=== PATIENT | female | born 2000 | race African-American/Black ===

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

== ENCOUNTER 2020-06-10 05:45 | Inpatient (IN) | payer MEDICAID, SELFPAY ==
[2020-06-10] VITALS (36 sets, daily range): BP systolic 97–124; BP diastolic 53–73; PULSE 56–111; RESP 16; TEMP 36.6–36.9; O2SAT 97–100; BMI 30.4
[2020-06-10 06:17] LABS: Absolute Lymphocyte Count 1.92 X10^3/uL (0.83-4.51); Absolute Neutrophil Count 5.7 X10^3/uL (2.0-7.7); Basophil# 0.02 X10^3/uL; Basophil% 0.2 % (0-1); Eosinophils% 1.1 % (0-5); Hematocrit 34.3 % (37-47); Hemoglobin 10.5 g/dL (12.0-15.0); Lymphocyte # 1.92 X10^3/ul (4.0); Lymphocyte % 21.9 % (19-41); Mean Corp Hgb Conc 30.6 g/dL (32-36); Mean Corpuscular Hgb 24.2 pg (27.0-32.0); Mean Corpuscular Volume 79.2 fL (81-99); Mean Platelet Vol. 11.2 fl (6.2-12.0); Monocyte# 0.93 X10^3/uL; Monocyte% 10.6 % (0-10); NRBC Flagged by Analyzer 0 % (0-5); Neutrophil # 5.73 X10^3/uL (2.7-7.7); Neutrophil % 65.6 % (47-70); Platelet Count 210 K/mm3 (150-450); RBC Distribution Width CV 15.2 % (11.6-14.6); RBC Distribution Width SD 43.7 fl (35.1-43.9); Red Blood Count 4.33 M/mm3 (4.2-5.4); White Blood Count 8.8 K/mm3 (4.4-11.0)
[2020-06-10] MEDS: Lactated Ringers 500 ML 999 ML IV (06:17)
[2020-06-10] MEDS: Lactated Ringers 1,000 ML 50 ML IV (06:50)
[2020-06-10] MEDS: fentaNYL-bupivacaine (epidural) 100 ML BAG EPIDURAL (07:29)
[2020-06-10 07:45] LABS: Amphetamine Urine VISTA NEGATIVE (<1000 ng/mL); Barbiturate Urine VISTA NEGATIVE (< 200 ng/mL); Benzodiazepine Urine VISTA NEGATIVE (< 200 ng/mL); Cocaine Urine VISTA NEGATIVE (< 300 ng/mL); Ecstacy Urine VISTA NEGATIVE (< 500 ng/mL); Methadone Urine VISTA NEGATIVE (< 300 ng/mL); PCP Urine VISTA NEGATIVE (< 25 ng/mL); THC Urine VISTA POSITIVE (< 50 ng/mL); Vista UDS pH Range 6
--- NOTE | 2020-06-10 08:36 | PCM.HP.OB ---
History Date of Admission: 06/10/19 Final SOPHIE: 06/17/20 Final SOPHIE Source: US <20 weeks Gestational age: 39 Weeks and 0 Days History of this : This is a 19 year-old, 2 para 1 at 39 weeks gestation with a EDC of 06/17/2020 presents with spontaneous labor. Her has been complicated to date by scanty care. SOPHIE was confirmed by 10-week ultrasound. She has a history of one previous vaginal delivery, her daughter was born 06/11/2019 and had trisomy 21. Allergies No Known Allergies Allergy (Verified 11/29/19 13:41) Home Medications: Home Medications Pnv No.95/Ferrous Fum/Folic AC [ Caplet] 1 tab PO DAILY 06/10/20 Smoking Status: Current some day smoker Substance Use Type: Marijuana Number of Fetus(es): 1 History Past Pregnancies: Past Pregnancies Delivery Date Name GA/ Weeks Outcome Route Wt Infant Sex Labor Length Anesthesia Delivery Location Provider FOB Expected Infant Delivery Method: Spontaneous Vaginal Review of Systems Constitutional: Denies: Chills, Fever Eyes: Denies: Blurred vision Cardiovascular: Denies: Chest Pain Respiratory: Denies: Cough Neurological: Reports: Balance problems. Denies: Change in Speech, Slurred speech Physical Exam Vitals: Vital Signs Temp Pulse BP Pulse Ox 97.9 F 72 109/66 100 06/10/20 06:30 06/10/20 08:33 06/10/20 08:33 06/10/20 07:26 General: Alert, Cooperative, No apparent distress Cardiovascular: Regular rate Lungs: Normal air movement Abdomen: Soft, Non-Distended, Gravid, Appropriate for Gestational Age Neurological: Neuro grossly intact Assessment/Plan This is a 19 year-old, avid 2 para 1 at 39 weeks gestation in labor. Estimated weight is less than 4500 g clinically and pelvis is clinically adequate to expect vaginal delivery. May have epidural as needed for pain control. Group B strep is unknown, patient was not treated with penicillin prophylaxis as she had no risk factors. Rapid group B strep is pending. Will notify pediatricians of results. Patient will need social service consult due to scant care.
[2020-06-10 08:44] LABS: Group B Strep DNA By PCR POSITIVE (Negative); Probe Check PASS
[2020-06-10] MEDS: Oxytocin 30 units/NS 500 ml 30 UNITS/500 ML IV.SOLN 334 UNITS IV (08:57)
--- NOTE | 2020-06-10 09:03 | PCM.OPRPT ---
Vaginal Delivery Maternal Presentation: Active Labor Amniotic Membrane Rupture Type: Artificial Amniotic Fluid Description: Clear Final SOPHIE: 06/17/20 Final SOPHIE Source: US <20 weeks Gestational age: 39 Weeks and 0 Days Date of Procedure: 06/10/20 Pre-Operative Diagnosis: labor Post-Operative Diagnosis: same Surgery/ Procedure Performed: Spontaneous Vaginal Delivery Type of Anesthesia: Epidural Description of Procedure: A vigorous [female] was delivered [SCARLETT] over intact perineum. The remainder the was delivered with maternal pushing and gentle traction only in less than 15 seconds. The Pitocin infusion was initiated for active management of the third stage. The cord was clamped and cut [after 1 minute]. The was attended to by the waiting nursing staff. The placenta was delivered spontaneously and intact. The cervix and vagina were intact. Sponge and needle counts were correct. A vaginal sweep was completed by me. Presentation: SCARLETT Placental Delivery Description: Spontaneous Placenta Disposition: [facility] Cord Vessel Description: 3 Vessels Cord Entanglement: None Drain: - - none Estimated Blood Loss: 200 A gender: Female - Maria Alejandra (1 minute): 9 (5 minute): 10 Episiotomy Description: None Laceration: None Medications given after delivery: IV Pitocin Complications: None
[2020-06-10] MEDS: Ibuprofen 600 MG Tablet PO ×2 (10:06→16:43)
[2020-06-10] MEDS: Acetaminophen 500 MG Tablet 1000 MG PO (21:39)
[2020-06-11] VITALS (11 sets, daily range): BP systolic 98–137; BP diastolic 48–84; PULSE 60–91; RESP 16; TEMP 36.1–36.9; O2SAT 98–100
[2020-06-11] MEDS: Ibuprofen 600 MG Tablet PO ×2 (02:34→15:53)
--- NOTE | 2020-06-11 08:56 | PCM.PN.OB ---
Subjective: Doing well per patient and nursing staff. Ambulating and taking PO without difficulty. Voiding and passing flatus. Bottlefeeding. Pain controlled. Lochia normal. Offers no complaints. Requesting discharge home. - Physical Exam Vitals/I&O's: Vital Signs Temp Pulse Resp BP Pulse Ox 98.0 F 65 16 113/61 99 06/11/20 08:45 06/11/20 08:45 06/11/20 08:45 06/11/20 08:45 06/11/20 08:45 Oxygen Delivery Method Room Air Weight: 206 lb 2.115 oz Body Mass Index (BMI) 30.4 Intake and Output for Last 24 Hours 06/09/20 06/10/20 06/11/20 23:59 23:59 23:59 Intake Total 1420.83 / 1420.83 Output Total 400 / 400 Balance 1020.83 / 1020.83 General: Alert, Oriented x3, Cooperative HEENT: Atraumatic, Normocephalic Neck: Trachea Midline Lungs: Clear to auscultation, Normal air movement, No rhonchi, No wheeze Cardiovascular: Regular rate, Regular Rhythm, No murmurs Abdomen: Bowel Sounds Present, Soft - fundus firm 2 below U Extremities: No edema Neurological: Deep Tendon Reflexes 2+/4 and Symmetrical Psych/Mental Status: Normal Affect, Appropriate Current Medications Acetaminophen (Tylenol) 1,000 mg PO Q8H PRN PRN PRN Reason: Pain Score 1-3/10 Last Admin: 06/10/20 21:39 Dose: 1,000 mg Documented by: Bisacodyl (Dulcolax) 10 mg RECTAL UD PRN PRN Reason: If no BM Dibucaine (Dibucaine) 1 applic TOPICAL TID PRN PRN; Protocol PRN Reason: Discomfort Hydrocortisone (Hytone) 1 applic TOPICAL TID PRN PRN; Protocol PRN Reason: Discomfort Ibuprofen (Motrin) 600 mg PO Q6H PRN PRN PRN Reason: Pain Score 1-3/10 Last Admin: 06/11/20 02:34 Dose: 600 mg Documented by: Methylergonovine Maleate (Methergine) 0.2 mg IM X1 PRN PRN Reason: Excess bleeding/uterine atony Ondansetron HCl (Zofran) 4 mg IV Q4H PRN PRN PRN Reason: Nausea Prochlorperazine Edisylate (Compazine Iv) 10 mg IV Q6H PRN PRN PRN Reason: NAUSEA/VOMITING Senna/Docusate Sodium (Senokot-S, Kym-Colace) 1 - 2 tablet PO DAILY PRN PRN PRN Reason: Constipation Simethicone (Mylicon) 80 mg PO PCHS PRN PRN Reason: Indigestion/Stomach pain Sodium Chloride () 5 - 15 ml IV UD PRN PRN Reason: SALINE FLUSH Medical Necessity - Tobacco Use Smoking Status: Current some day smoker Assessment/Plan A:PPD #1 P: 1) Routine instructions 2) technical services coordinator consultation. 3) Discharge home pending social worker school and junior legal secretary. 4) Follow up in 2 weeks and 6 weeks.
--- NOTE | 2020-06-11 08:58 | DCINST_ITS ---
Discharge Diet: No Restrictions Discharge Activity: Return to Normal Activity, May not drive while taking narcotic pain medications., May Shower May resume sexual activity in: 4-6 weeks Additional Activity Instructions:: Nothing in the vagina for 4-6 weeks. You may return to work/school in 6 weeks. Call your doctor if your incision/area has: Continuous Slow Oozing, Sudden Increased Bleeding, Increased Pain/ Swelling, Increased Redness, Foul Smelling Discharge Additional Instructions: If you experience any of the following, contact your healthcare provider. * Bleeding that soaks a pad every hour for 2 hours * Fever 100.4 or higher * Unrelieved incision or abdominal pain * Swelling, redness, discharge or bleeding from your incision or episiotomy site * Your incision begins to separate * Problems urinating (including inability to urinate or burning while urinating). * Visual changes * Severe headache * Flu-like symptoms * Pain or redness in one of both of your breasts * Pain, warmth, tenderness or swelling in your legs, especially the calf area * Frequent nausea and vomiting * Symptoms of depression or anxiety If you experience any of the following, call 911 or go to the nearest Emergency Room. * Chest pain * Problems breathing * Seizure activity * Partial or complete paralysis of a body part, slurred speech, weakness or drooping of the face, or a sudden inability to walk or hold your balance Allergies/Adverse Reactions: Allergies No Known Allergies Allergy (Verified 11/29/19 13:41) Medications to take at Discharge Pnv No.95/Ferrous Fum/Folic AC [ Caplet] 1 tab PO DAILY 06/10/20 Please Follow Up With: Jennyfer Lee MD When: Call to make an appointment with your doctor in 6 weeks. If you had elevated Blood Pressure or 4th degree laceration you will need to be seen in 2 weeks. Primary Care Physician: Noelle Verduzco NP, SOUND EFFECTS PERSON-C [Primary Care Provider] - Test Results: Test results from this visit will be discussed in further detail at your follow- up appointment, if applicable.
--- NOTE | 2020-06-11 08:58 | PCM.DCVAG ---
Discharge Diet: No Restrictions Discharge Activity: Return to Normal Activity, May not drive while taking narcotic pain medications., May Shower May resume sexual activity in: 4-6 weeks Additional Activity Instructions:: Nothing in the vagina for 4-6 weeks. You may return to work/school in 6 weeks. Call your doctor if your incision/area has: Continuous Slow Oozing, Sudden Increased Bleeding, Increased Pain/ Swelling, Increased Redness, Foul Smelling Discharge Additional Instructions: If you experience any of the following, contact your healthcare provider. Bleeding that soaks a pad every hour for 2 hours Fever 100.4 or higher Unrelieved incision or abdominal pain Swelling, redness, discharge or bleeding from your incision or episiotomy site Your incision begins to separate Problems urinating (including inability to urinate or burning while urinating). Visual changes Severe headache Flu-like symptoms Pain or redness in one of both of your breasts Pain, warmth, tenderness or swelling in your legs, especially the calf area Frequent nausea and vomiting Symptoms of depression or anxiety If you experience any of the following, call 911 or go to the nearest Emergency Room. Chest pain Problems breathing Seizure activity Partial or complete paralysis of a body part, slurred speech, weakness or drooping of the face, or a sudden inability to walk or hold your balance Allergies/Adverse Reactions: Allergies No Known Allergies Allergy (Verified 11/29/19 13:41) Medications to take at Discharge Pnv No.95/Ferrous Fum/Folic AC [ Caplet] 1 tab PO DAILY 06/10/20 Please Follow Up With: Jennyfer Lee MD When: Call to make an appointment with your doctor in 6 weeks. If you had elevated Blood Pressure or 4th degree laceration you will need to be seen in 2 weeks. Primary Care Physician: Noelle Verduzco NP, OBSERVER HELPER-C [Primary Care Provider] - Test Results: Test results from this visit will be discussed in further detail at your follow-up appointment, if applicable.
--- NOTE | 2020-06-11 13:08 | CASEMGMT ---
Social Work Labor and Delivery Verbal consult received by nursing staff for maternal history of marijuana in and teen mother (19 years old). Chart has been reviewed and noted that patient/mother of baby (MOB) first child with diagnosis of Trisomy 21. Presented to MOB's room twice today. First presentation, the reported father of baby in room and stated that MOB is showering. This radio script writer noted odor of what smelled like marijuana in the room. FOB asked for bottles. Updated nursing to request for bottles and mentioned the smell in the room. RN reports this smell has been present on and off today. Second presentation to the room found that MOB had signed off of the unit. Will try again later today as time allows for assessment and consult. -JOSEPH Espinoza, ARABIC PROFESSOR
--- NOTE | 2020-06-11 15:55 | CASEMGMT ---
Social Work Assessment Labor and Delivery Unit Patient Address: [address] [place], [place] [address]Mar[place] [address] Phone number: [phone] Date of Referral: 06/10/2020 Referred By: Nursing staff Date of Intervention: 06/11/2020 Time of Intervention: 1555 Reason for Referral: Maternal history of marijuana use, positive upon admission. History obtained from: Medical records and mother of baby (MOB) Redd Motley; father of baby (FOB) Adrian Schaffer also present for part of assessment. Household composition: MOB reports to currently lives with FOB's cousin Александр Alvarez, and Александр's girlfriend. MOB reports home situation is safe and adequate. Also in the home are MOB and FOB's older daughter. Intend to take baby to this home. Patient's parent/guardian status: MARU is a 19-year-old single -Finnish female involved with FOB who is a 18-year-old -Finnish male for the last 4 years. MOB denies any type of abuse, control, or intimidation in this relationship. MOB and FOB now have 2 children together: Radha Schaffer(born 06/11/2019) and baby Maria Alejandra Schaffer (born 06/10/2020). Medical History: MARU is 2 para 1, now 2 after delivery of Maria Alejandra. care during this was limited with visits noted at 10, 12, 20, and 26 weeks. MOB reports moving as reasons for limited care. Note that MOB oldest daughter does have Down syndrome. Maria Alejandra was born weighing 6 pounds 8 ounces Apgars are reported to be 9 and 10 at 1 and 5 minutes respectively. Educational Status: MARU reports she graduated from high school, and is able to read, write, and understand what is read. 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 JOEL does not work because he does not have a photo ID. Currently the family is financially assisted by FOSheila's cousin, with whom they live. Infant Supplies: MOB reports to have needed infant supplies including a pack and play, a crib, 1 car seat currently, clothing, diapers, and wipes. MOB reports to be feeding baby via combination of formula and breast-feeding. MARU plans to use WIC to assist with purchasing formula. Childcare/Caregiver(s): MARU is the primary caregiver of the children, with help from father of baby. Transportation: MOB reports to rely on JOEL's cousin, cabs and bus passes. Programs/Agencies Involved: MOB reports to have medical through job and family services, and plans to reapply for the food card. Community action program for transportation passes, and has made inquiries with a car seat program to get a second car seat for the family. MARU agrees to an early Headstart referral through [employer] as well. Reports a history of help me grow involvement for her oldest daughter, but nothing current. MOB reports plan to reapply for financial support through the Bridges program (which is a program for children who have been in foster care and aged out of the system). [facility] Children Services/Legal Issues: MOB denies any type of legal charges for herself or the father of baby. MOB reports the father of baby used to be on probation for issues related to marijuana, but denies any other type of legal history. MOB reports children services of [facility] did become involved when MOB was a minor, and about 3 to 4 months prior to MOB turning 18 the MOB and her younger siblings were placed into foster care. MARU reports that her younger siblings still reside in foster care through children services. MOB reports upon aging out a foster care she is utilize the bridges program, which has assisted MOB with transitioning to independent living. Behavioral Health Issues: Mental Health History: MARU denies any form of mental health issues for herself, and denies any history of suicidal or homicidal ideation/planning/intent/attempts. MARU reports she is known a couple of people this year have by suicide, and knows that this leaves a lasting effect on others, which is not something MOB wants to do. MARU denies any depression, and reports she is typically a very healthy person. [place] depression screen completed with MOB this date and score is a 3, which is lower than the threshold for depression. Substance Use History: MARU endorses marijuana use during , and reports she did not use it all of the time. MOB reports use was related to back issues. Last use was reported to be about 1 week ago. MOB denies any other illicit drug use history including heroin, meth, cocaine, or other opiates or narcotic type drugs. Denies alcohol use. Did use tobacco during . Family History: Both of MOB parents have a history of substance use disorder. Drug Screens: Maternal drug screens positive for marijuana on 11/23/2019 and 06/10/2020. 's urine drug screen negative and meconium drug screen is pending. Family/Social Stressors:: MOB reports she JOEL decided to move out of [facility] during this , as they thought it might be better. JOEL reportedly has family in the [facility], so they moved to [place] for about a week and then to [place] for short time. MOB reports she realized they moved too quickly before everything was really organized, and decided to move back to [place], and since have been living with JOEL's cousin. 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 As a results the parents were not able to financially support themselves. MOB reports she is been having contact with her mother, but doing this more so to be a support to her mother who is reportedly working on sobriety. MOB reports that her mother is coming up at the two-year abhinav with a minor children being in the custody of children services. MOB reports that if her mother does not put together and get the children back, that MOB will be taken around to be a support to her mother. Support Systems: MOB reports her sister is a good support person to MOB. For practical help and will be reports the JOEL suppressing helps out a lot. MOB reports there is adequate support between family and friends. Depression/Shaken Baby/Safe Sleeping discussed shaken baby prevention and safe sleeping. MOB reports she knows somebody who is baby just due to sleep-related issues, and MOB understands the importance of safe sleeping. Educated to depression and anxiety, risk factors, and importance of seeking help if symptoms arise. ASSESSMENT: Met with MOB and FOB in room and then met with MOB alone. MOB cooperative, pleasant, good eye contact, nondefensive, bright affect. MOB reports to have needed infant supplies to care for the infant at home, and to have adequate support and taking the baby home. MOB reports intent to abstain from marijuana moving forward. Addressed with MOB whether she is involved with any supportive services for her her older daughter who has Down syndrome. MARU reports history of help me grow, but not interested in referral back to this program. MARU reports her oldest daughter is reportedly hitting all of the milestones on time and there has been no concerns for need of additional intervention at this point. MARU does agree to an early Headstart referral through community action, for both of her daughters. MARU also reports intent to apply for resources which may help the family including the bridges program and food stamps. Educated MOB to need to call children services related to baby being exposed to marijuana in utero. MARU reports she was expecting this, as this is much the same as after her oldest daughter was born. This speech writer addressed the odor of what appeared to be marijuana earlier today when this speech writer stopped by. And will be admitted that JOEL does also smoke marijuana, and that likely it was just the jacket from home as to why this speech writer smelled such odor. MARU reports that neither MOB or FOB have any type of substances on them here at the hospital. MOB indicates her last usage was 1 week ago. Discussed and encouraged no use of substances around the children. Note, this speech writer did addressed with MOB that it is not recommended to use marijuana while breast-feeding. MOB expressed understanding. Safe Plan of Care for infant related to substance use: MOB reports intent to abstain from marijuana use. Reports is been changes in the future for wound not use this substance around the baby. PLAN: MOB and baby to home when ready for discharge. Provided family with a [facility] resource list, and informational packet on depression. Information provided on safe sleeping and shaking baby prevention. Referral to early Headstart and children services to be made. -PALMER Espinoza, MYKEL *Information documented in this assessment generated with [employer]*
--- NOTE | 2020-06-11 16:30 | CASEMGMT ---
Social Work Labor and Delivery Unit Early Headstart referral form signed by mother at the baby and faxed to confirm 5 at 9 AM depression, . -JOSEPH Espinoza, PLANT FLOOR AUTOMATION MANAGER
--- NOTE | 2020-06-12 13:30 | CASEMGMT ---
Social Work Labor and Delivery Unit Call made to [facility] at [phone]. Spoke with police in the intake department. Referral due to substance exposed to marijuana, as evidenced by maternal drug screen positive during and at time of delivery. Reported negative urine drug screen and pending meconium. Other risk factors including limited care, limited finances, and past history of children services reported brief maternal and history is also reported. Children services made aware that mother of baby and infant were discharged in the evening of 06-11-2020. -JOSEPH Espinoza, TAPE TRANSFERRER
== END 2020-06-11 20:54 | disposition home or self-care (01) | DRG 560 ==
LOC: OBT 05:51 → WP 05:51
PROVIDERS: Obstetrics & Gynecology; Admitting Provider Obstetrics & Gynecology; PCP Nurse Practitioner; Referring Provider Obstetrics & Gynecology; Visit Provider Obstetrics & Gynecology
DX: O99.334 Smoking (tobacco) complicating childbirth (principal); F17.200 Nicotine dependence, unspecified, uncomplicated; Z37.0 Single live birth; Z3A.39 39 weeks gestation of pregnancy
CPT/HCPCS: 59025; 59050; 80307; 85025; 86850; 86900; 86901; 87653; 99218; J7120; G0378

== ENCOUNTER 2020-07-16 16:07 | Emergency (ER) | payer MEDICAID, SELFPAY ==
[2020-06-10 05:47] VITALS: BMI 30.4
[2020-07-16 16:08] VITALS: BP 137/71; PULSE 100; RESP 18; TEMP 36.7; O2SAT 99; BMI 27.7
[2020-07-16 16:12] VITALS: BP 137/71; PULSE 91; RESP 17; TEMP 36.7; O2SAT 98
--- NOTE | 2020-07-16 16:21 | CT_ITS ---
STUDY: CT ABDOMEN AND PELVIS WITH CONTRAST REASON FOR EXAM: Female, 19 years old. RIGHT SIDE ABD PAIN X-SEVERAL DAYS -- POST VAGINAL DELIVERY X1 MONTH AGO RADIATION DOSAGE (If Supplied By Facility): CTDIvol = ( 17.94 ) mGy, DLP = ( 1832.69 ) mGycm TECHNIQUE: Transaxial images were obtained from the dome of the diaphragm to the symphysis pubis without oral contrast. IV 100mL Isovue-300 was administered. Sagittal and coronal images were reconstructed. Individualized dose optimization techniques were used for this CT. COMPARISON: None. FINDINGS: The visualized lung bases are unremarkable. The visualized portions of the heart are within normal limits. There is hepatomegaly with diffuse hepatic enlargement. Normal gallbladder and extrahepatic biliary system. There is mild splenomegaly. Normal pancreas. Normal bilateral adrenal glands. Patchy regions of diminished enhancement of the bilateral kidneys suggesting inflammatory process such as pyelonephritis . There is no hydronephrosis. Normal visualized stomach. Normal small intestine. Normal colon. The appendix is visualized and appears normal. Normal abdominal aorta. Normal inferior vena cava. Normal retroperitoneum. Normal urinary bladder. Normal visualized uterus. There is mild free fluid in the pelvis. Normal abdominal wall. Normal osseous structures. CT/Abdomen/Pelvis W IV Cont ONLY IMPRESSION: Abnormal diminished enhancement of the kidneys with inflammatory process such as pyelonephritis. Hepatosplenomegaly. No biliary dilatation. Electronically Signed: Akhil Glover MD at 17:54 EDT , Service support ,
--- NOTE | 2020-07-16 16:22 | ED.DCSUM_ITS ---
History of Present Illness Chief Complaint: Flank Pain Informant: Patient Narrative: 19-year-old female 1 month presents with concern for right- sided abdominal pain. States that she started her first menstrual cycle since her vaginal delivery approximately 4 days ago. States that she has had a right flank and abdominal aching since that time. States it is somewhat worse with movement. Denies any nausea or vomiting. No association with eating. Denies any vaginal discharge, fever, chills, shortness of breath, chest pain, cough. Past Medical History - Allergies and Home Meds Allergies/Adverse Reactions: Allergies No Known Allergies Allergy (Verified 07/16/20 16:08) Primary Care Physician: Noelle Verduzco [employer] SERVICES MANAGER, [employer] SERVICES MANAGER-C [Primary Care Provider] - Prior records reviewed: Yes Past Medical History: None Surgical History: no surgical history Lives: With Family Smoking Status: Current some day smoker Alcohol: None Drugs: None Review of Systems General: Denies: Chills, Fever, Sweats Eyes: Denies: Visual changes - bilaterally, Diplopia ENT: Denies: Rhinorrhea, Sore throat Cardiovascular: Denies: Chest pain, Palpitations Respiratory: Denies: Dyspnea, Cough, Dyspnea on exertion Gastrointestinal: Reports: Abdominal pain. Denies: Nausea, Vomiting, Diarrhea, Melena, Hematochezia Genitourinary: Denies: Dysuria, Hematuria, Frequency Musculoskeletal: Denies: Back pain, Extremity Pain Skin: Denies: Rash, Wounds Neurological: Denies: Headache, Weakness, Numbness Physical Exam Vital Signs/Narrative: Vital Signs Temp Pulse Resp BP Pulse Ox 07/16/20 16:12 98.0 F 91 17 137/71 H 98 07/16/20 16:08 98.0 F 100 18 137/71 H 99 General: Well nourished, Well developed, No Acute Distress Head: Normocephalic, Atraumatic Eyes: Perrl, EOMI ENT: Moist mucous membranes, No rhinorrhea Neck: Supple, Nontender Cardiovascular: Regular rate, Regular rhythm, No murmurs Respiratory: No distress, CTA bilaterally, Chest nontender Abdomen: Soft, Nondistended, Normal bowel sounds, - - TTP in the mid-right abdomen. No rebound. Back: Nontender, Normal Inspection Extremities: Nontender, No edema Skin: Normal color, No rash Neurological: Alert, Oriented x3, Cranial nerves II-XII grossly intact, Normal Strength, Normal Sensation Psychological: Normal affect, Normal Mood Diagnostic/Tx/Re-eval Clinical Impression(s) from Imaging Studies Abdomen/Pelvis CT 07/16/20 16:21 IMPRESSION: Abnormal diminished enhancement of the kidneys with inflammatory process such as pyelonephritis. Hepatosplenomegaly. No biliary dilatation. Electronically Signed: Akhil Glover MD at 17:54 EDT , Service support , Laboratory Data 07/16/20 07/16/20 07/16/20 16:41 16:41 17:50 WBC 13.0 H RBC 4.70 Hgb 11.0 L Hct 37.8 MCV 80.4 L MCH 23.4 L MCHC 29.1 L RDW Std Deviation 52.9 H RDW Coeff of [place] 17.9 H Plt Count 197 MPV 10.7 Immature Gran % (Auto) 0.500 Neut % (Auto) 72.6 H Lymph % (Auto) 14.2 L [place] % (Auto) 12.3 H Eos % (Auto) 0.2 Baso % (Auto) 0.2 Absolute Neuts (auto) 9.5 H Absolute Lymphs (auto) 1.85 Nucleated RBC % 0 Differential Comment SCANNED Diff Path Review May foll Sodium 138 Potassium 3.5 Chloride 106 Carbon Dioxide 23.0 Anion Gap 9 BUN 8 Creatinine 0.95 Estim Creat Clear Calc 99.54 Est GFR (MDRD) Af Amer 97 Est GFR (MDRD) Non-Af 80 BUN/Creatinine Ratio 8.4 L Glucose 86 Calcium 8.9 Total Bilirubin 0.70 AST 17 ALT 43 Alkaline Phosphatase 98 Total Protein 8.1 Albumin 3.0 L Globulin 5.1 H Albumin/Globulin Ratio 0.6 L Lipase 49 L Urine Color Yellow Urine Clarity Sl. Cloudy Urine pH 6.0 Ur Specific [place] 1.010 Urine Protein 100 H Urine Glucose (UA) Normal Urine Ketones 15 H Urine Occult Blood 250 H Urine Nitrite Positive H Urine Bilirubin Negative Urine Urobilinogen 4 H Ur Leukocyte Esterase 500 H Urine RBC 25-50 SEEN Urine WBC 50-100 SEEN Ur Squamous Epith Cells 0-5 SEEN Urine Bacteria 2+ WBC Casts 0-5 SEEN Urine Mucus 0 SEEN - Medical Decision Making Appears well nontoxic. Vital signs within normal limits. Benign abdominal exam. Urine shows evidence of UTI. CT concerning for pyelonephritis. Patient does have 13,000 white count. Afebrile. Patient is nontoxic. We will give her 1 g of Rocephin in the emergency department. Will be treated with QID Keflex for 10 days. Asked to follow-up with [facility]. Asked to return for new or w orsening symptoms. Patient agreeable and discharged home in stable condition. Impression: 1. Pyelonephritis ED Disposition - Plan for ED Patient: Disposition: Home or Assisted Living Instructions: ED Pyelonephritis Female Adult Prescriptions: Cephalexin [Keflex] 500 mg PO Q6 #40 cap Prescription Printed Naproxen [Naprosyn] 500 mg PO BID #14 tab Prescription Printed Referrals: Noelle Verduzco NP, [employer] FO[employer] SERVICES MANAGER-C [Primary Care Provider] - 2 Days
[2020-07-16] MEDS: 0.9% Normal Saline 1,000 ML 1000 ML IV (16:37)
[2020-07-16] MEDS: Ketorolac 15 MG/ML Vial IV (16:38)
[2020-07-16] MEDS: Ondansetron 4 MG/2 ML Vial IV (16:38)
[2020-07-16 16:54] LABS: Absolute Lymphocyte Count 1.85 X10^3/uL (0.83-4.51); Absolute Neutrophil Count 9.5 X10^3/uL (2.0-7.7); Basophil# 0.03 X10^3/uL; Basophil% 0.2 % (0-1); Eosinophil# 0.02 X10^3/uL; Eosinophils% 0.2 % (0-5); Hematocrit 37.8 % (37-47); Lymphocyte # 1.85 X10^3/ul (4.0); Lymphocyte % 14.2 % (19-41); Mean Corp Hgb Conc 29.1 g/dL (32-36); Mean Corpuscular Hgb 23.4 pg (27.0-32.0); Mean Corpuscular Volume 80.4 fL (81-99); Mean Platelet Vol. 10.7 fl (6.2-12.0); Monocyte% 12.3 % (0-10); NRBC Flagged by Analyzer 0 % (0-5); Neutrophil # 9.47 X10^3/uL (2.7-7.7); Neutrophil % 72.6 % (47-70); POSITIVE DIFFERENTIAL YES; Platelet Count 197 K/mm3 (150-450); RBC Distribution Width CV 17.9 % (11.6-14.6); RBC Distribution Width SD 52.9 fl (35.1-43.9)
[2020-07-16 17:05] LABS: Differential Indicated SCAN CRITERIA MET
[2020-07-16 17:08] LABS: ALB/GLOB Ratio 0.6 RATIO (0.9-2.4); AST(SGOT) 17 U/L (15-37); Alanine Aminotransfer ALT/SGPT 43 U/L (13-56); Alkaline Phosphatase 98 U/L (45-117); Anion Gap 9 (5-15); BUN 8 mg/dL (7-18); BUN/Creat Ratio 8.4 RATIO (10-20); Calcium,Total 8.9 mg/dL (8.5-10.1); Chloride 106 mmol/L (98-107); Creatinine, Serum 0.95 mg/dL (0.55-1.02); EST Glomerular Filtration Rate 80 mL/min (>60); Est Glom Filt Rate - Afr Amer 97 mL/min (>60); Estimated Creatinine Clearance 99.54 ml/min; Globulin 5.1 g/dL (2.2-4.2); Glucose 86 mg/dL (74-106); Lipase 49 U/L (73-393); Potassium 3.5 mmol/L (3.5-5.1); Protein, Total 8.1 g/dL (6.4-8.2); Sodium Level 138 mmol/L (136-145)
[2020-07-16 17:56] VITALS: BP 113/72; PULSE 71; RESP 15; TEMP 36.8; O2SAT 96
[2020-07-16 18:01] LABS: Mucous, Urine 0 SEEN /hpf (<or=2+)
[2020-07-16 18:01] LABS: Differential Comment SCANNED
[2020-07-16 18:08] LABS: Color, Urine Yellow (Yellow); Glucose, Dipstick Normal (Normal); Ketone-Dipstick 15 mg/dl (Negative); Leukocyte Esterase-Dipstick 500 /ul (Negative); Nitrite-Dipstick Positive (Negative); Occult Blood-Urine 250 /ul (Negative); Protein-Dipstick 100 mg/dl (Negative); Urine Bilirubin Dipstick Negative (Negative); Urine Clarity Sl. Cloudy (Clear); Urine Urobilinogen 4 mg/dl (Normal)
[2020-07-16 18:13] VITALS: BP 115/63; PULSE 84; RESP 16; O2SAT 95
[2020-07-16 18:34] LABS: Bacteria 2+ /hpf (None Seen); Red Blood Cells-Urine 25-50 SEEN /hpf (0-5); Squamous Epithelial Cells - UA 0-5 SEEN /hpf (5-10); White Blood Cells 50-100 SEEN /hpf (0-5); White Cell Cast 0-5 SEEN /lpf (None Seen)
[2020-07-16] MEDS: Ceftriaxone 1 GM/50 ML BAG IV (18:52)
[2020-07-16 20:03] VITALS: BP 135/71; PULSE 79; RESP 18; O2SAT 96
[2020-07-17 13:53] LABS: Pathologist Review Reviewed
== END 2020-07-16 20:05 | disposition home or self-care (01) ==
PROVIDERS: Emergency Provider Emergency Medicine; PCP Nurse Practitioner
DX: N12 Tubulo-interstitial nephritis, not specified as acute or chronic (principal); F17.200 Nicotine dependence, unspecified, uncomplicated
CPT/HCPCS: 74177; 80053; 81001; 83690; 85025; 96361; 96365; 96375; 99282; 99285; J7030; Q9967; A4216; J2405

== ENCOUNTER 2021-12-26 03:22 | Outpatient (CLI) | payer MEDICAID, SELFPAY ==
[2021-12-26 03:38] VITALS: BP 118/67; PULSE 67
[2021-12-26 03:52] VITALS: BMI 26.7
[2021-12-26] MEDS: Lactated Ringers 1,000 ML 999 ML IV (04:37)
[2021-12-26] MEDS: Ondansetron 4 MG/2 ML Vial IV (04:37)
[2021-12-26 04:39] LABS: Absolute Lymphocyte Count 1.26 X10^3/uL (0.83-4.51); Absolute Neutrophil Count 8.6 X10^3/uL (2.0-7.7); Basophil# 0.03 X10^3/uL; Basophil% 0.3 % (0-1); Eosinophil# 0.07 X10^3/uL; Eosinophils% 0.6 % (0-5); Hematocrit 36.5 % (37-47); Hemoglobin 12.2 g/dL (12.0-15.0); Lymphocyte # 1.26 X10^3/ul (0.83-4.51); Lymphocyte % 11.6 % (19-41); Mean Corp Hgb Conc 33.4 g/dL (32-36); Mean Corpuscular Hgb 30.8 pg (27.0-32.0); Mean Corpuscular Volume 92.2 fL (81-99); Monocyte# 0.82 X10^3/uL; Monocyte% 7.6 % (0-10); NRBC Flagged by Analyzer 0 % (0-5); Neutrophil # 8.61 X10^3/uL (2.7-7.7); Neutrophil % 79.5 % (47-70); Platelet Count 216 K/mm3 (150-450); RBC Distribution Width CV 13.2 % (11.6-14.6); RBC Distribution Width SD 44.6 fl (35.1-43.9); Red Blood Count 3.96 M/mm3 (4.2-5.4); White Blood Count 10.8 K/mm3 (4.4-11.0)
[2021-12-26 05:01] LABS: ALB/GLOB Ratio 0.7 RATIO (0.9-2.4); AST(SGOT) 9 U/L (15-37); Alanine Aminotransfer ALT/SGPT 16 U/L (13-56); Albumin, Serum 3.2 g/dL (3.2-5.0); Alkaline Phosphatase 79 U/L (45-117); Anion Gap 6 (5-15); BUN 10 mg/dL (7-18); BUN/Creat Ratio 16.4 RATIO (10-20); Calcium,Total 8.6 mg/dL (8.5-10.1); Chloride 105 mmol/L (98-107); Creatinine, Serum 0.61 mg/dL (0.55-1.02); EST Glomerular Filtration Rate 132 mL/min (>60); Est Glom Filt Rate - Afr Amer 160 mL/min (>60); Estimated Creatinine Clearance 141.87 ml/min; Globulin 4.3 g/dL (2.2-4.2); Glucose 110 mg/dL (74-106); Potassium 3.9 mmol/L (3.5-5.1); Protein, Total 7.5 g/dL (6.4-8.2); Sodium Level 136 mmol/L (136-145)
--- NOTE | 2021-12-27 21:06 | OB.TRI.NOTE ---
HPI - General HPI Narrative OTTO RUFFIN, is a 21 F who presents at 24w6d with N/V and RUQ abdominal pain. Maternal Data Information SOPHIE Calculator Estimated Delivery Date Method Current WG Current Estimate 04/12/22 LMP (Certain) 24w 6d PFSH PFSH Allergy/AdvReac Type Severity Reaction Status Date / Time No Known Allergies Allergy Verified 07/16/20 16:08 Social History Smoking Status: Current every day smoker History Elective abortions Hx Para 1 Spontaneous abortions Hx # Term Pregnancies Ectopic pregnancies Hx # Pregnancies Multiple births # of living children NST FHR Rate Baby A Baseline: 130 Assessment & Plan (1) 24 weeks gestation of : PLAN: CBC w/ diff and CMP unremarkable IVF hydration and IV zofran Pt's symptoms improved D/c home with f/u in office (2) RUQ abdominal pain:
== END 2021-12-26 23:59 | disposition home or self-care (01) ==
LOC: WPOUT 03:28 → WP 03:28
PROVIDERS: PCP Nurse Practitioner; Visit Provider Obstetrics & Gynecology
DX: O99.891 Other specified diseases and conditions complicating pregnancy (principal); O99.332 Smoking (tobacco) complicating pregnancy, second trimester; R10.11 Right upper quadrant pain; F17.200 Nicotine dependence, unspecified, uncomplicated; Z3A.24 24 weeks gestation of pregnancy
CPT/HCPCS: 96365; 96375; 36415; 59025; 59050; 80053; 85025; 99218; J7120; G0378; J2405

== ENCOUNTER 2022-03-29 19:45 | Inpatient (IN) | payer MEDICAID, SELFPAY ==
[2022-03-29] VITALS (45 sets, daily range): BP systolic 92–120; BP diastolic 50–81; PULSE 55–93; TEMP 36.3–36.8; O2SAT 91–100; BMI 29.2
[2022-03-29] MEDS: LACTATED RINGERS 500 ML 999 ML IV (20:05)
[2022-03-29 20:13] LABS: Absolute Lymphocyte Count 1.22 X10^3/uL (0.83-4.51); Absolute Neutrophil Count 4.7 X10^3/uL (2.0-7.7); Basophil# 0.03 X10^3/uL; Basophil% 0.4 % (0-1); Eosinophil# 0.04 X10^3/uL; Eosinophils% 0.6 % (0-5); Hematocrit 34.2 % (37-47); Hemoglobin 10.7 g/dL (12.0-15.0); Lymphocyte # 1.22 X10^3/ul (0.83-4.51); Lymphocyte % 18.2 % (19-41); Mean Corp Hgb Conc 31.3 g/dL (32-36); Mean Corpuscular Hgb 26.8 pg (27.0-32.0); Mean Corpuscular Volume 85.7 fL (81-99); Mean Platelet Vol. 11.4 fl (6.2-12.0); Monocyte# 0.69 X10^3/uL; Monocyte% 10.3 % (0-10); NRBC Flagged by Analyzer 0 % (0-5); Neutrophil # 4.68 X10^3/uL (2.7-7.7); Neutrophil % 70.1 % (47-70); Platelet Count 161 K/mm3 (150-450); RBC Distribution Width CV 14.3 % (11.6-14.6); RBC Distribution Width SD 44.2 fl (35.1-43.9); Red Blood Count 3.99 M/mm3 (4.2-5.4); White Blood Count 6.7 K/mm3 (4.4-11.0)
[2022-03-29] MEDS: Lactated Ringers 1,000 ML 200 ML IV (20:36)
[2022-03-29 21:16] LABS: Amphetamine Urine VISTA NEGATIVE (<1000 ng/mL); Barbiturate Urine VISTA NEGATIVE (< 200 ng/mL); Benzodiazepine Urine VISTA NEGATIVE (< 200 ng/mL); Cocaine Urine VISTA NEGATIVE (< 300 ng/mL); Ecstacy Urine VISTA NEGATIVE (< 500 ng/mL); Methadone Urine VISTA NEGATIVE (< 300 ng/mL); PCP Urine VISTA NEGATIVE (< 25 ng/mL); THC Urine VISTA POSITIVE (< 50 ng/mL); Vista UDS pH Range 6
[2022-03-29] MEDS: fentaNYL-bupivacaine (epidural) 100 ML BAG EPIDURAL (21:39)
--- NOTE | 2022-03-29 22:33 | HP.PCM.OB_ITS ---
HPI - General General Date of Admission: 03/29/22 HPI Narrative OTTO RUFFIN, is a 21 F who presents at 38w0d in active labor with contractions. . OB history complicated by limited PN care, last appointment at 18 weeks gestation, marijuana use, tobacco use, short interval , and daughter with down syndrome. Maternal Data Information SOPHIE Calculator Estimated Delivery Date Method Current WG Current Estimate 04/12/22 LMP (Certain) 38w 0d PFSH PFSH Allergy/AdvReac Type Severity Reaction Status Date / Time No Known Allergies Allergy Verified 07/16/20 16:08 Family History (Updated 03/29/22 @ 20:17 by Melanie Lopez) Daughter Heart murmur Down's syndrome Aunt No problems noted. Social History Smoking Status: Current every day smoker History Elective abortions Hx Para 1 Spontaneous abortions Hx # Term Pregnancies Ectopic pregnancies Hx # Pregnancies Multiple births # of living children Visit Details OB Flowsheet Initial Weight: Not Recorded Date -?-?-?-?-?-?-?-?-?-?-?--?- EGA Weight BP Urine Prot -?-?-?-?-?-?-?-?-?-?-?-?- Glucose FHR FuHt Pres Dilation -?-?-?-?-?-?-?-?-?-?-?-?- Effaced St Visit Note 03/29/22 -?-?-?-?-?-?-?-?-?-?-?-?- 38w 0d 181 lb 2 oz 115/62 105/64 98/53 100/53 92/54 97/54 112/56 106/58 116/60 104/60 109/63 112/69 117/79 119/71 120/81 113/70 94/50 -?-?-?-?-?-?-?-?-?-?-?-?- -?-?-?-?-?-?-?-?-?-?-?-?- NST FHR Rate Baby A Baseline: 135 Variability:: Moderate Accelerations:: 15 x 15 Decelerations:: None FHR Category:: Category I Uterine Activity:: every 2-3 minutes, strong Vital Signs Vital Signs Vital Signs: 03/29/22 20:22 03/29/22 20:22 03/29/22 20:22 Temperature 98.2 F Temperature Source Pulse Rate 72 Blood Pressure BP Systolic BP Diastolic Pulse Ox 100 03/29/22 20:22 03/29/22 20:22 03/29/22 20:21 Temperature Temperature Source Temporal Pulse Rate 72 Blood Pressure 115/62 BP Systolic 115 BP Diastolic 62 Pulse Ox 03/29/22 20:21 03/29/22 20:21 03/29/22 20:21 Temperature 98.3 F Temperature Source Pulse Rate 72 Blood Pressure BP Systolic BP Diastolic Pulse Ox 100 03/29/22 20:27 03/29/22 20:27 03/29/22 20:32 Temperature Temperature Source Pulse Rate 70 80 Blood Pressure BP Systolic BP Diastolic Pulse Ox 100 03/29/22 20:32 03/29/22 20:41 03/29/22 20:41 Temperature Temperature Source Pulse Rate 82 Blood Pressure BP Systolic BP Diastolic Pulse Ox 99 100 03/29/22 20:46 03/29/22 20:46 03/29/22 20:48 Temperature Temperature Source Pulse Rate 73 Blood Pressure 105/64 BP Systolic 105 BP Diastolic 64 Pulse Ox 100 03/29/22 20:48 03/29/22 20:51 03/29/22 20:51 Temperature Temperature Source Pulse Rate 71 66 Blood Pressure BP Systolic BP Diastolic Pulse Ox 100 03/29/22 20:54 03/29/22 20:54 03/29/22 20:54 Temperature Temperature Source Pulse Rate 73 Blood Pressure 98/53 L BP Systolic 98 BP Diastolic 53 Pulse Ox 92 03/29/22 20:54 03/29/22 20:56 03/29/22 20:56 Temperature Temperature Source Pulse Rate 71 61 Blood Pressure BP Systolic BP Diastolic Pulse Ox 99 03/29/22 20:58 03/29/22 20:58 03/29/22 21:04 Temperature Temperature Source Pulse Rate 64 Blood Pressure 100/53 L 92/54 L BP Systolic 100 92 BP Diastolic 53 54 Pulse Ox 03/29/22 21:04 03/29/22 21:04 03/29/22 21:07 Temperature Temperature Source Temporal Pulse Rate 93 Blood Pressure BP Systolic BP Diastolic Pulse Ox 98 03/29/22 21:04 03/29/22 21:07 03/29/22 20:54 Temperature 98.1 F Temperature Source Pulse Rate Blood Pressure BP Systolic BP Diastolic Pulse Ox 100 100 03/29/22 21:09 03/29/22 21:09 03/29/22 21:09 Temperature Temperature Source Pulse Rate 76 Blood Pressure 97/54 L BP Systolic 97 BP Diastolic 54 Pulse Ox 100 03/29/22 21:13 03/29/22 21:14 03/29/22 21:14 Temperature Temperature Source Pulse Rate 75 Blood Pressure 112/56 L BP Systolic 112 BP Diastolic 56 Pulse Ox 100 03/29/22 21:18 03/29/22 21:19 03/29/22 21:19 Temperature Temperature Source Pulse Rate 75 Blood Pressure 106/58 L BP Systolic 106 BP Diastolic 58 Pulse Ox 100 03/29/22 21:23 03/29/22 21:23 03/29/22 21:24 Temperature Temperature Source Pulse Rate 79 71 Blood Pressure BP Systolic BP Diastolic Pulse Ox 92 03/29/22 21:24 03/29/22 21:24 03/29/22 21:24 Temperature Temperature Source Pulse Rate 76 Blood Pressure 116/60 BP Systolic 116 BP Diastolic 60 Pulse Ox 100 03/29/22 21:29 03/29/22 21:29 03/29/22 21:34 Temperature Temperature Source Pulse Rate 85 62 Blood Pressure BP Systolic BP Diastolic Pulse Ox 92 03/29/22 21:34 03/29/22 21:35 03/29/22 21:35 Temperature Temperature Source Pulse Rate 62 Blood Pressure 104/60 BP Systolic 104 BP Diastolic 60 Pulse Ox 100 03/29/22 21:38 03/29/22 21:39 03/29/22 21:39 Temperature Temperature Source Pulse Rate 62 Blood Pressure 109/63 BP Systolic 109 BP Diastolic 63 Pulse Ox 100 03/29/22 21:43 03/29/22 21:44 03/29/22 21:44 Temperature Temperature Source Pulse Rate 57 L Blood Pressure 112/69 BP Systolic 112 BP Diastolic 69 Pulse Ox 100 03/29/22 21:45 03/29/22 21:45 03/29/22 21:48 Temperature Temperature Source Pulse Rate 72 Blood Pressure 117/79 BP Systolic 117 BP Diastolic 79 Pulse Ox 92 03/29/22 21:48 03/29/22 21:49 03/29/22 21:49 Temperature Temperature Source Pulse Rate 55 L 65 Blood Pressure BP Systolic BP Diastolic Pulse Ox 98 03/29/22 21:50 03/29/22 21:50 03/29/22 21:54 Temperature Temperature Source Pulse Rate 67 Blood Pressure 119/71 BP Systolic 119 BP Diastolic 71 Pulse Ox 91 03/29/22 21:54 03/29/22 21:54 03/29/22 21:58 Temperature Temperature Source Pulse Rate 64 66 Blood Pressure BP Systolic BP Diastolic Pulse Ox 97 03/29/22 21:58 03/29/22 21:59 03/29/22 21:59 Temperature Temperature Source Pulse Rate 56 L Blood Pressure BP Systolic BP Diastolic Pulse Ox 91 100 03/29/22 22:04 03/29/22 22:04 03/29/22 22:05 Temperature Temperature Source Pulse Rate 64 Blood Pressure 120/81 H BP Systolic 120 BP Diastolic 81 Pulse Ox 100 03/29/22 22:05 03/29/22 22:09 03/29/22 22:09 Temperature Temperature Source Pulse Rate 58 L 71 Blood Pressure BP Systolic BP Diastolic Pulse Ox 100 03/29/22 22:11 03/29/22 22:11 03/29/22 22:13 Temperature 97.3 F L Temperature Source Pulse Rate 68 Blood Pressure 113/70 BP Systolic 113 BP Diastolic 70 Pulse Ox 03/29/22 22:13 Temperature Temperature Source Temporal Pulse Rate Blood Pressure BP Systolic BP Diastolic Pulse Ox Weight Weight: 181 lb 2 oz Body Mass Index (BMI) 29.2 Physical Exam Const alert and oriented x3 General Appearance: cooperative Orientation / Consciousness: awake, oriented to person, oriented to place and oriented to time Exam Limitations: no limitations HEENT normocephalic Head and Scalp: normal to inspection, normocephalic and atraumatic Face and Sinus: normal facial exam Eyes General Eye: normal appearance of both eyes Neck full ROM Chest Chest: symmetrical chest wall rise Resp normal respiratory effort and normal air movement Auscultation: clear to auscultation bilaterally Cardio regular rate, regular rhythm, S1 normal heart sound, S2 normal heart sound, no murmurs, no rub, no gallops and no clicks GI normal to inspection, nondistended, normoactive bowel sounds and non-tender appearance of the vagina normal Bladder / Kidney Exam: no CVA tenderness Manual OB Exam: estimated gestational size appropriate, presentation cephalic, dilated 10, effaced 100, station +1 and other arom large amount of clear fluid Back/Spine normal ROM Extremity normal to inspection and full ROM Skin no rashes or lesions noted Neuro oriented x3, CN's II-XII intact bilaterally and moves all extremities Sensorium / Orientation: awake, alert and oriented to person Motor Exam: clonus absent Deep Tendon Reflexes: Rt Patellar (L4): 2+ and Lt Patellar (L4): 2+ Labs Labs Labs: Blood Type B POSITIVE Antibody Screen NEGATIVE Hct 34.2 % (37-47) L Hgb 10.7 g/dL (12.0-15.0) L Group B Strep DNA POSITIVE (Negative) H Rhogam given: No Rubewlla Immune RPR negative HBsAG negative HepC negative HIV negative B positive GBS Unknown GC/CT negative No GCT completed Assessment & Plan (1) Active labor at term: (2) Limited care: (3) Previous child with Down syndrome, antepartum: (4) Tobacco use complicating : (5) Marijuana use: (6) Short interval between pregnancies affecting , antepartum: PLAN: Plan 1) Admit to labor and delivery 2) Routine labs, COVID screen 3) GBS unknown, no treatment per guidelines 4) Epidural for pain management 5) Continuous monitoring 6) Limited PN care, no glucose screening. EFW appropriate 7) collaborative physician and notified of patient status
[2022-03-29] MEDS: Oxytocin 30 units/NS 500 ml 30 UNITS/500 ML IV.SOLN 334 UNITS IV (22:47)
--- NOTE | 2022-03-29 23:02 | EX.PCM.OBRPT ---
Assessment & Plan (1) Vaginal delivery: Maternal Data Information SOPHIE Calculator Estimated Delivery Date Method Current WG Current Estimate 04/12/22 LMP (Certain) 38w 0d Vaginal Delivery Maternal Presentation Maternal Presentation: Active Labor Operative Information Date of Procedure: 03/29/22 Pre-Operative Diagnosis: active labor Post-Operative Diagnosis: vaginal delivery Surgery / Procedure Performed: Spontaneous Vaginal Delivery Type of Anesthesia: Epidural Estimated Blood Loss: 200 ml Time of Delivery: 22:43 Findings Description of Procedure: Progressed to complete dilation and +1 station. Good maternal pushing efforts with epidural analgesia. of viable female infant over intact perineum. APGARS 9,9. head delivered with body immediately forthcoming, placed on maternal abdomen, strong cry. mouth and nares suctioned for secretions. Pitocin started for active 3rd stage management. Placenta delivered with expression, intact, 3 vessel cord. Perineum inspected and intact. Vaginal sweep completed by me, fundus firm, EBL 200ml. Sponge and instrument count correct. Mom and baby stable. notified of delivery. Presentation: CANDACE Amniotic Membrane Rupture Type: Artificial Amniotic Fluid Description: Clear Placental Delivery Description: Expressed Placenta Disposition: Sent to Pathology Cord Vessel Description: 3 Vessels Cord Entanglement: None Infant A Gender: Female (1 minute): 9 (5 minute): 9 Delayed Cord Clamping: Yes Post Vaginal Delivery Medications Given After Delivery: IV Pitocin Episiotomy Description: None Laceration: None Complication Complications: None
[2022-03-30] VITALS (11 sets, daily range): BP systolic 100–134; BP diastolic 50–81; PULSE 53–96; RESP 16–18; TEMP 36.5–37.3; O2SAT 98
--- NOTE | 2022-03-30 01:26 | PLAC_PTH ---
PATIENT: OTTO RUFFIN LOC: [facility] U#:[id number] AGE/SX: 21/F ROOM: WP003 RE03/29/[address]: Milagros Guajardo CNM : 2000 BED: 1 DIS: 03/31/2022 SPEC #: [id number] RECD: 03/30/22 03:15 STATUS: MELO SHASHANK #: [id number] CRISTHIAN: 03/30/22 01:[address]: Milagros Guajardo DEPT: SURGICAL PATHOLOGY RECD BY: Tia Rogers ENTERED: 03/30/22 07:05 SP TYPE: PLACENTA OTHR DR: AURE Lerma Tissues: Placenta, NOS Procedures: Surgery Specimen Level V HEADER OPERATION: Vaginal delivery PRE-OP DIAGNOSIS: Limited care TISSUE SUBMITTED: Placenta MICROSCOPIC DIAGNOSIS Phillip placenta (452 gm): Umbilical cord ? trivascular with no evidence of inflammation. Placental membranes ? mild chronic deciduitis. Placental disc ? Minh change, increased intraparenchymal microcalcifications and mild chronic decidual inflammation. AM:landen 04/01/2022 MICROSCOPIC DESCRIPTION Slides are reviewed. GROSS DESCRIPTION SPECIMEN: PLACENTA / CLINICAL INFORMATION: A. Weight: 3.01 kg B. Gestational Age: 38 weeks C. Sex: Female PLACENTAL WEIGHT (POST FIXATION): 452 gm PLACENTAL DIMENSIONS: 16 x 19 x 3 cm PLACENTAL SHAPE: Usual ovoid PLACENTAL WEIGHT FOR GESTATIONAL AGE: Within 10-99th percentile MEMBRANES - Present A. Insertion: Marginal B. Site of rupture from edge: The membranes are fragmented and appears to be ruptured at the margin of the placenta. C. Color of membrane: [place]-mucoidy D. Abnormalities: None UMBILICAL CORD - Present A. Color: [place]-lowry B. Insertion: Central C. Length: 34 cm D. Diameter: 1 cm E. Number of vessels: Three F. Abnormalities: None PLACENTAL DISC - Present A. Color of surface: [place]-lowry B. surface abnormalities: None C. Maternal cotyledons: Intact with minimal tears. A few blood clots are noted on the maternal surface. D. Attached retro placental clot: No clot E. Cut surface: Dark red and spongy F. Lesions: None G. Separate clot: Absent SECTIONS SUBMITTED: 1. Membrane roll 2. Cord, maternal end 3. Cord, end 4. Placental disc, and maternal surfaces 5. Placental disc, and maternal surfaces 6. Placental disc, and maternal surfaces SJ:landen 03/31/2022 TC:3 CPT: 37927
[2022-03-30 03:22] LABS: Pathology Specimen OB SEE PATHOLOGY REPORT
--- NOTE | 2022-03-30 07:20 | NURSING ---
report given to Rich Gaines RN who is assuming care of pt at this time
--- NOTE | 2022-03-30 07:45 | PCM.PN.OB ---
Subjective Subjective Patient seen at bedside. Resting comfortably. Breast and bottle feeding. Ambulating and voiding without difficulty. Denies pain. Desires discharge home tomorrow. Objective Data Objective Data Vital Signs: Vital Signs Temp Pulse Resp BP Pulse Ox 99.1 F 96 18 124/68 H 98 03/30/22 19:35 03/30/22 19:35 03/30/22 19:35 03/30/22 19:35 03/30/22 19:35 Oxygen Delivery Method Room Air Weight: 181 lb 2 oz Body Mass Index (BMI) 29.2 Intake & Output: Intake and Output for Last 24 Hours 03/28/22 03/29/22 03/30/22 23:59 23:59 23:59 Intake Total 1085.87 / 1085.87 344.13 / 344.13 Output Total 50 / 50 Balance 1035.87 / 1035.87 344.13 / 344.13 Lab / Micro Data Result Diagrams: 03/30/22 14:50 Labs: Laboratory Results - last 24 hr 03/29/22 20:02: Blood Type B POSITIVE, Antibody Screen NEGATIVE 03/29/22 20:10: Group B Strep DNA Negative, Specimen Comment Not Reportable 03/29/22 20:10: Urine Opiates Screen NEGATIVE, Urine Methadone Screen NEGATIVE, Ur Barbiturates Screen NEGATIVE, Ur Phencyclidine Scrn NEGATIVE, Ur Amphetamines Screen NEGATIVE, MDMA (Ecstasy) Screen NEGATIVE, U Benzodiazepines Scrn NEGATIVE, Urine Cocaine Screen NEGATIVE, U Cannabinoids Screen POSITIVE H 03/30/22 14:50: WBC 5.1, RBC 3.77 L, Hgb 10.2 L, Hct 31.7 L, MCV 84.1, MCH 27.1, MCHC 32.2, RDW Std Deviation 43.8, RDW Coeff of [place] 14.4, Plt Count 141 L, MPV 11.2 Micro: Microbiology 03/29/22 09:30 Nasal Secretion SARS-CoV-2 Antigen (Rapid) - Final ROS Eyes Eyes: Denies blurry vision, change in vision or spots in vision ENT HEENT: Denies dizziness or headache(s) Cardiovascular Cardiovascular: Denies abdominal pain, chest pain or dyspnea Respiratory/Chest Respiratory/Chest: Denies cough, dyspnea, shortness of breath at rest or shortness of breath with exertion Gastrointestinal Gastrointestinal: Denies abdominal pain, diarrhea or vomiting Genitourinary Genitourinary: Denies change in urinary stream, difficulty urinating or dysuria Musculoskeletal Musculoskeletal: Reports none Integumentary Integumentary: Denies rash Neurologic Neurologic: Denies dizziness, headache(s), memory loss or weakness Physical Exam Const alert and no apparent distress General Appearance: cooperative and comfortable Exam Limitations: no limitations HEENT normocephalic Eyes General Eye: normal appearance of both eyes Neck full ROM General: normal visual inspection Chest Chest: symmetrical chest wall rise Resp normal respiratory effort and normal air movement Effort and Inspection: symmetric chest movement Auscultation: clear to auscultation bilaterally Cardio regular rate and regular rhythm GI normal to inspection, nondistended, normoactive bowel sounds Back/Spine normal ROM Extremity full ROM and no calf tenderness General Extremity: normal exam except as noted Skin no rashes or lesions noted Neuro CN's II-XII intact bilaterally Psych mental status grossly normal Assessment & Plan (1) Vaginal delivery: (2) Tobacco use complicating : (3) Short interval between pregnancies affecting , antepartum: (4) Marijuana use: (5) Limited care: PLAN: Plan PPD 1 Routine care Pain control Anticipate discharge home tomorrow
[2022-03-30 07:57] LABS: Group B Strep DNA By PCR Negative (Negative); Internal Control PASS; Probe Check PASS; Specimen Processing Control PASS
[2022-03-30] MEDS: Ibuprofen 600 MG Tablet PO ×2 (08:38→18:11)
[2022-03-30] MEDS: Senna/Docusate Sodium 1 Tablet PO (08:38)
[2022-03-30] MEDS: Acetaminophen 500 MG Tablet 1000 MG PO ×2 (13:14→23:20)
[2022-03-30 15:03] LABS: Hematocrit 31.7 % (37-47); Hemoglobin 10.2 g/dL (12.0-15.0); Mean Corp Hgb Conc 32.2 g/dL (32-36); Mean Corpuscular Hgb 27.1 pg (27.0-32.0); Mean Corpuscular Volume 84.1 fL (81-99); Mean Platelet Vol. 11.2 fl (6.2-12.0); Platelet Count 141 K/mm3 (150-450); RBC Distribution Width CV 14.4 % (11.6-14.6); RBC Distribution Width SD 43.8 fl (35.1-43.9); Red Blood Count 3.77 M/mm3 (4.2-5.4); White Blood Count 5.1 K/mm3 (4.4-11.0)
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
[2022-03-31 04:01] VITALS: BP 133/79; PULSE 72; RESP 16; TEMP 36.3
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
[2022-03-31 08:10] VITALS: BP 123/70; PULSE 75; RESP 14; TEMP 37.1; O2SAT 99
--- NOTE | 2022-03-31 08:37 | PCM.PN.OB ---
Subjective Subjective Pain well controlled. Average lochia. Tolerating regular diet. Has been urinating w/o difficulty. Had a BM. Breast and bottle feeding Objective Data Objective Data Vital Signs: Vital Signs Temp Pulse Resp BP Pulse Ox 97.4 F L 72 16 133/79 H 98 03/31/22 04:01 03/31/22 04:01 03/31/22 04:01 03/31/22 04:01 03/30/22 19:35 Oxygen Delivery Method Room Air Weight: 82.157 kg Body Mass Index (BMI) 29.2 Intake & Output: Intake and Output for Last 24 Hours 03/29/22 03/30/22 03/31/22 23:59 23:59 23:59 Intake Total 1085.87 / 1085.87 344.13 / 344.13 Output Total 50 / 50 Balance 1035.87 / 1035.87 344.13 / 344.13 Lab / Micro Data Result Diagrams: 03/30/22 14:50 Labs: Laboratory Results - last 24 hr 03/30/22 14:50: WBC 5.1, RBC 3.77 L, Hgb 10.2 L, Hct 31.7 L, MCV 84.1, MCH 27.1, MCHC 32.2, RDW Std Deviation 43.8, RDW Coeff of [place] 14.4, Plt Count 141 L, MPV 11.2 Micro: Microbiology 03/29/22 09:30 Nasal Secretion SARS-CoV-2 Antigen (Rapid) - Final Physical Exam Const alert and no apparent distress Narrative: Fundus firm, below umbilicus. Assessment & Plan (1) Vaginal delivery: PLAN: day #2 status post vaginal delivery. is breast and bottlefeeding. Patient would desire discharge home today. Routine follow-up and prescriptions.
--- NOTE | 2022-03-31 08:40 | DS.PCM_ITS ---
Providers Date of Admission: 03/29/22 Date of Discharge: 03/31/22 Primary Care Physician: AURE Lerma Reason For Visit: LABOR Diagnosis Discharge Diagnosis (1) Vaginal delivery: Status: Acute Code(s): O80 - Encounter for full-term uncomplicated delivery Plan: day #2 status post vaginal delivery. is breast and bottlefeeding. Patient would desire discharge home today. Routine follow-up and prescriptions. Hospital Course Operations - (Vaginal delivery on 03/29/2022) Procedures None Summary of Care Provided Hospital Course: 21-year-old female admitted at 38 weeks in labor. She had an uncomplicated vagi nal delivery on 03/29/2022. By day #2 she was ready for discharge was doing well. Routine follow-up and prescriptions. Weight / BMI Weight Weight: 82.157 kg Body Mass Index (BMI) 29.2 ABG / Lab / Microbiology Data Result Diagrams: 03/30/22 14:50 Laboratory: Laboratory Results - last 24 hr 03/30/22 14:50: WBC 5.1, RBC 3.77 L, Hgb 10.2 L, Hct 31.7 L, MCV 84.1, MCH 27.1, MCHC 32.2, RDW Std Deviation 43.8, RDW Coeff of [place] 14.4, Plt Count 141 L, MPV 11.2 Microbiology: Microbiology 03/29/22 09:30 Nasal Secretion SARS-CoV-2 Antigen (Rapid) - Final D/C Instructions May resume sexual activity in: 6 weeks Please Follow Up With: Jennyfer Lee MD When: Follow up with our office in 1-2 and 6 weeks or as needed. [phone] Meaningful Use Info Meaningful Use Diagnoses (Choose all that apply): None applicable Discharge Plan Admission Admit Date/Time: 03/29/22 19:45 Primary Reason for Your Visit: Spontaneous vaginal delivery Attending Provider: Milagros Guajardo Primary Care Provider: Noelle Verduzco NP Discharge Orders/Prescriptions Referrals / Follow Up: Noelle Verduzco NP, LEAD ASSISTANT MANAGER-C [Primary Care Provider] - Disposition Disposition (needs filled in before D/C Order can be placed): Home, Self Care
[2022-03-31] MEDS: Ibuprofen 600 MG Tablet PO (09:14)
[2022-03-31 12:59] VITALS: BP 115/68; PULSE 57; RESP 16; TEMP 36.6
== END 2022-03-31 13:30 | disposition home or self-care (01) | DRG 560 ==
LOC: WP 03-30 08:57 → WPOUT 03-30 08:57
PROVIDERS: Admitting Provider Advanced Practice Midwife; PCP Nurse Practitioner; Visit Provider Advanced Practice Midwife
DX: O99.324 Drug use complicating childbirth (principal); Z37.0 Single live birth; F12.90 Cannabis use, unspecified, uncomplicated; F17.210 Nicotine dependence, cigarettes, uncomplicated; Z3A.38 38 weeks gestation of pregnancy; O99.334 Smoking (tobacco) complicating childbirth; O26.893 Other specified pregnancy related conditions, third trimester
CPT/HCPCS: 59025; 59050; 80307; 85025; 85027; 86850; 86900; 86901; 87426; 87653; 88307; 99218; 99406; J7120; G0378

== ENCOUNTER 2023-05-01 20:28 | Emergency (ER) | payer MEDICAID, SELFPAY ==
[2023-05-01 20:30] VITALS: BP 141/95; PULSE 90; RESP 16; TEMP 36.6; O2SAT 100; BMI 21.4
--- NOTE | 2023-05-01 20:43 | ED.VIS.FEGU ---
HPI HPI - Female History of Present Illness Chief Complaint: Female C/O PFSH PFS Medical History (Updated 05/01/23 @ 21:[address] Nahid Nelson, DO) Marijuana use Previous child with Down syndrome, antepartum Tobacco use complicating Vaginal delivery Medical History no medical history Allergy/AdvReac Type Severity Reaction Status Date / Time No Known Allergies Allergy Verified 05/01/23 20:32 Family History (Updated 03/29/22 @ 20:17 by Melanie Lopez) Daughter Heart murmur Down's syndrome Aunt No problems noted. Surgical History no surgical history Social History Smoking Status: Light Smoker (<10/day) EXAM Physical Exam Const Vital Signs: 05/01/23 20:30 Temperature 97.9 F Temperature Source Temporal Pulse Rate 90 Respiratory Rate 16 Blood Pressure 141/95 H Blood Pressure Mean 110 Pulse Ox 100 Oxygen Delivery Method Room Air [facility] MDM MDM Narrative Medical decision making narrative: HISTORY OF PRESENT ILLNESS: 22-year-old female here with vaginal itching. Notes this began several days ago. Denies abdominal pain notes her pH balance is off. She ceftriaxone 1 partner unprotected. Denies history of STDs. REVIEW OF SYSTEMS: Pertinent positives: Vaginal itching Pertinent negatives: PHYSICAL EXAM: Nursing triage notes reviewed, Vital signs reviewed Constitutional: please see mdm HENT: MMM Eyes: Pupils equal round and reactive to light, Extraocular muscles intact Neck: No stridor, no JVD, full neck ROM Lungs: Clear to auscultation, No wheezing or rales. No increased work of breathing, no conversational dyspnea, no accessory muscle use, no nasal flaring. No respiratory distress noted Heart: Regular rate and rhythm, No murmurs, No rubs and No gallops, 2+ distal pulses (radial, femoral, posterior tibial) in all extremities Abdomen: Soft, there is no tenderness, rigidity, rebound or guarding, no obvious peritoneal signs, no palpable pulsatile abdominal masses, no auscultated abdominal bruit : Vaginal mucosa moist and pink, no cervical friability, normal vaginal discharge. No thick purulent vaginal discharge. No white cottage cheeselike discharge. Extremities: No edema Neuro: No focal neurological deficits, cranial nerves II through XII intact, 5/5 strength in all extremities. Intact sensation to light touch in all extremities, 2+ reflexes bilateral patella tendons. Normal gait. No ataxia. Skin: No rash or lesions noted MEDICAL DECISION MAKING: Chief Complaint: Vaginal itching External records reviewed: G3, P0 Factors affecting care: none Social determinants of health: Marijuana abuse History obtained from others: The patient's significant other Consults: none [] ALL IMAGES (IF OBTAINED) HAVE BEEN PERSONALLY REVIEWED AND INTERPRETED BY MYSELF. MDM Narrative: Patient was hemodynamically stable, afebrile, nontoxic-appearing. exam is unremarkable. I considered the following differential diagnosis: BV, trichomonas, vaginal yeast infection, gonorrhea chlamydia I performed pelvic exam which was mostly unremarkable. Obtain swabs. Tested for the above pathogens. Offered empiric therapy for gonorrhea chlamydia however patient refused. She states she prefer to follow-up with results before starting treatment. Patient was discharged stable condition with instructions to return if symptoms change or worsen. To refrain from sexual activity. The patient and/or family, caregivers express understanding. The patient and/or family, caregivers agrees with the plan. Shared decision making: I will have a discussion with the patient and or visitors regarding risk/benefits of further testing or admission. They will be made aware of of the risk/benefits inherent in this decision they will be given the opportunity to voice understanding. Total critical care time today provided was at least 0 minutes. This excludes separately billable procedures. Critical care time (if documented) is secondary to the patient having high probability of clinically significant/life threatening deterioration in the patient's condition which required my urgent intervention. Lab Data Attestation: I reviewed the patient's lab results. Labs: Laboratory Results - last 24 hr 05/01/23 20:46 Urine Test Negative Discharge Plan Triage Chief Complaint: Female C/O ED Provider: Nahid Nelson Dx/Rx/DC Orders Clinical Impression: Vaginal discharge Instructions: Preventing Vaginitis, Vaginal Infection Primary Care Provider: Noelle Verduzco SERVICE ESTABLISHMENT ATTENDANT Referrals: Toby Anthony MD [Med Staff - Special Education Educational Assistant] - Activity Restrictions/Additional Instructions: Thank you for trusting us with your care today! Please take Tylenol (2 pills, 650 mg), ibuprofen (2 pills, 400 mg) every 6 hours as needed for pain and fever control. Please refrain from sexual activity until results of testing are known. Please follow with your MyChart in order to see results online. You can call into the emergency department. If your testing is positive we will give you a call and prescribe the appropriate antibiotic at that time. Please return to the emergency department if your symptoms change or worsen. Please follow with your primary care physician for further outpatient evaluation and management. Disposition Disposition: Home, Self Care
[2023-05-01 21:00] LABS: Internal QC Validated? YES +Cl - CLEAR BKGD; Pregnancy, Urine Negative Negative
[2023-05-01 21:13] VITALS: BP 141/95; PULSE 90; RESP 16; O2SAT 100
[2023-05-01 22:44] LABS: Trichomonas Vag DNA by PCR Negative (Negative)
[2023-05-01 22:45] LABS: Probe Check PASS; Sample Adequacy Control PASS; Specimen Processing Control PASS
== END 2023-05-01 21:36 | disposition home or self-care (01) ==
PROVIDERS: Emergency Provider Emergency Medicine; Visit Provider Emergency Medicine
DX: N89.8 Other specified noninflammatory disorders of vagina (principal); F12.10 Cannabis abuse, uncomplicated; F17.200 Nicotine dependence, unspecified, uncomplicated
CPT/HCPCS: 81025; 87491; 87591; 87661; 99282

== ENCOUNTER 2024-10-29 08:00 | Outpatient (RCR) | payer SELFPAY ==
--- NOTE | 2024-10-29 09:05 | BH.SGPN.GN ---
Behaviors/Verbalizations/Mental Status: [] Eye contact is good. Motor activity is appropriate. Appearance is casual. Speech is Appropriate. Mood is depressed/anxious. Affect is congruent. Thoughts are linear and logical. No evidence of psychosis. Reviewed daily check in sheet and no reports of suicidal ideations or intent. Client Response/Progress/Benefit: [] Pt did not participate in group discussions. Attentive. Daily symptom tracker notes 4/5 for depression and 5/5 for anxiety. Declined to share. Today was pt's first day in IOP. Group provided suggestions and feedback regarding the program as well as her first day/week. Benefited from group support and feedback. Will continue in IOP to stabilize mood, prevent decompensation, increase healthy coping, and improve functioning. Narrative Note: []
--- NOTE | 2024-10-29 10:10 | BH.SGPN.GN ---
Behaviors/Verbalizations/Mental Status: []Client alert and oriented, casually dressed and groomed. Eye contact good. Motor activity appropriate. Speech within normal limits. Affect congruent, mood anxious. Thoughts linear, logical, no signs of hallucinations or delusions. Client Response/Progress/Benefit: [] Pt was an attentive and active participant, AEB taking notes and providing input in group discussion. Attentive during psychoeducation. Pt engaged during interactive discussion in which the group defined self-care and discussed its benefits. Group discussed barriers to engaging in self-care. Group members together came up with guilt, time, ?people pleasing?, not knowing what to do, and perception that its unproductive as barriers to engage in self-care. Pt identified personal barrier as ?forgetting? and ?not wanting to?. Pt participated in small groups where they worked to identify and challenged common self-care ?myths?. Benefited from increased awareness of self-care, its benefits, and the consequences of not utilizing self-care strategies. Will continue IOP tx to improve mood stability, promote use of healthy coping skills, and prevent decompensation. Narrative Note: []
--- NOTE | 2024-10-29 11:10 | BH.SGPN.GN ---
Behaviors/Verbalizations/Mental Status: []Client alert and oriented, casually dressed and groomed. Eye contact good. Motor activity appropriate. Speech within normal limits. Affect congruent, mood anxious. Thoughts linear, logical, no signs of hallucinations or delusions. Client Response/Progress/Benefit: [] Pt taking notes during discussion reviewing different areas of self-care and completing self-assessment of current self-care, as well as providing input throughout discussion. Did well to complete self-care self-assessment worksheet. Pt identified how pt is doing in each category and what self-care activities pt wants to start using. Pt selected financial self-care to begin practicing more consistently. Pt plans to do this by creating a budget. Appeared to benefit from completing the self-care evaluation and gaining insights into current self-care practices, as well as identifying areas in which pt would like to improve upon. Pt will continue IOP tx to prevent decompensation, improve daily functioning, and gain healthy coping skills. Narrative Note: []
--- NOTE | 2024-10-31 13:43 | BH.DS_ITS ---
Discharge Summary Demographics Date of Admission:: 10/29/24 Discharge Date: 10/31/24 Presenting Problems at Admission:: Pt is a 24 year old female with a complex psychiatric history. No previous psychiatric admissions. Referred to [facility] by her PO after pt completed a substance abuse assessment. According to PO the recommendations from the assessment included outpatient counseling. According to PO she had concerns for pt's mental health due to rapid speech, disorganization, impulsivity, and OCD traits. Pt has hx of meth use however its believed she has been sober since 12/2023 (random drug screens through probation). PO is concerned that mental health is impacting her functioning and ability to follow through with court recommendations. Pt states that she is motivated to address her concerns. She reports a collection of symptoms which makes a definitive diagnosis difficult (Bipolar 2 vs OCD vs Schizoaffective D/O). Also a hx of Meth and Cannabis abuse. Pt reports guilt, shame, sadness, avoidance, and impulsivity. Racing thoughts, pressured/rapid speech, and inter rupts often. Endorses erratic moods, restlessness, erratic sleep, poor appetite, frequent panic attacks, and isolation. According to pt she has rituals and calming behaviors related to obsessive thoughts. I will butting saw operator front of the mirror for hours rearranging my clothes. Hx of impulsivity and reckless behaviors. I don't' think about anything but right now. Denies HI or psychosis. Denies suicidal ideations, plan, or intent. No hx of attempts. Family hx of Schizophrenia (father). I'm scared that I have that. Recent legal issues which resulted in losing custody of her 3 children. Linked with counseling at [facility] as well as psychiatry at [facility]. Discharge Diagnoses:: Unspecified Mood Disorder, F39 Reason for Discharge:: Pt failed to show for two initial psychiatric evaluations. Due to IOP requirements she could not continue in the program and has to be discharged. Treatment Progress During Treatment & Response: No progress noted. Pt only showed for one IOP day (10/29/24). Pt has displayed inconsistent attendance in IOP. She was scheduled to meet with program psychiatrist and start program on 10/12/24 however no called/no showed that day. She was then scheduled to start on 10/15/24 however again failed to show. She reached out to program apologizing and requesting to re-engage in IOP. Program agreed to schedule another day to start however due to waiting list and pt requiring transportation this could not be coordinated until 10/29/24. Pt missed arranged transportation again on the morning on 10/29/24 however did attend and was admitted. Scheduled to meet with program psychiatrist on 10/30/24 however again missed arranged transportation. Spoke with patient to discuss obstacles and struggles with consistent attendance. Pt has struggles with consistent attendance which may be due in part to mental health however per program requirements she cannot continue in IOP with psychiatric evaluation. She was placed on wating list with scheduled start date on 11/12/24. Issues Still to be Addressed:: Racing thoughts, pressured/rapid speech, imp ulsivity, recklessness, OCD traits, intrusive thoughts, erratic moods, rapid cycling, and overall inability to function. Discharge Recommendations/Instructions:: Recommended to follow up with counseling and duty manager for further evaluations. Hx of non-compliance with current providers as well as court recommendations. She was placed again on IOP waitlist. Discharge Handout
== END 2024-10-31 12:31 | disposition home or self-care (01) ==
LOC: BHIOP 08:00
PROVIDERS: Referring Provider Psychiatry & Neurology Psychiatry; Visit Provider Psychiatry & Neurology Psychiatry
DX: F39 Unspecified mood [affective] disorder (principal)
CPT/HCPCS: H2020